=== PATIENT | female | born 1990 | race Caucasian/White ===

== ENCOUNTER 2020-01-25 01:24 | Emergency (ER) | payer BC ==
[~2020-01-25] VITALS: Ht 167.6 cm; Wt 52.2 kg
[2020-01-25 01:40] VITALS: BP 108/71
[2020-01-25] MEDS ORDERED: ASPIR 8181 MG ORAL (01:40)
[2020-01-25] MEDS ORDERED: PROZAC40 MG ORAL (01:40)
--- NOTE | 2020-01-25 01:57 | Emergency Room Report ---
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 COVID-19 risk:Contact w/high r: No COVID-19 risk:Travel to affect: No Has patient experienced lynch: Yes Coronavirus symptoms experienc: Fever (T>100.4F or >38C), Shortness of Breath, Flu-Like Symptoms Allergies: Coded Allergies: No Known Allergies (Unverified , 01/25/20) Patient History Past Medical History: see triage record Last Menstrual Period: 12/23 Now: No Reviewed Nursing Documentation: PMH: Agreed; PSxH: Agreed Nursing Documentation-PMH Past Medical History: No History, Except For Review of Systems All Other Systems: negative except mentioned in HPI Physical Exam Vital Signs Date Time Temp Pulse Resp B/P (MAP) Pulse Ox O2 Delivery O2 Flow Rate FiO2 01/25/20 01:30 100.9 112 20 108/71 (83) 94 Room Air Sp02 EP Interpretation: reviewed, normal General Appearance: well appearing, no apparent distress Head: normocephalic, atraumatic Eyes: bilateral eye PERRL, bilateral eye EOMI ENT: hearing grossly normal, TMs + canals normal, uvula midline, pharyngeal erythema Neck: full range of motion, supple, no meningismus, no bony tend Respiratory: lungs clear, normal breath sounds, no rhonchi, no respiratory distress, no retraction, no accessory muscle use Cardiovascular #1: normal peripheral pulses, regular rate, rhythm, no edema, no gallop, no JVD, no murmur Gastrointestinal: normal bowel sounds, non tender, soft, no mass, no organomegaly, non-distended, no guarding, no hernia, no pulsatile mass, no rebound Genitourinary: no CVA tenderness Musculoskeletal: normal inspection Neurologic: motor strength/tone normal, academic affairs vice president III-XII nml as tested, oriented x3 , sensory intact, responsive Psychiatric: mood/affect normal Skin: no rash Lymphatic: normal inspection, no adenopathy Medical Decision Making Diagnostic Impression: Primary Impression: Influenza-like symptoms ER Course Given the history and presentation multiple differentials and consideration including but not limited to flu,covid 19, pharyngitis, simple cold Patient also reports that she has a valve replacement Reports that she was diagnosed with the flu last month was put on Tamiflu Patient has some criteria meeting testing for covid 19 However with the lack of any cough or recent travel does not meet Department of Health criteria Unfortunately we also do not have any further testing kits at this time Patient does not appear ill requiring hospitalization therefore was instructed to rest at home self quarantine And isolation Patient was provided Tamiflu for possible influenza with high false-negative rate on testing Also placed on antibiotics given her valve replacement Fever has improved patient feels improved and is discharged for close outpatient follow-up Last Vital Signs Date Time Temp Pulse Resp B/P (MAP) Pulse Ox O2 Delivery O2 Flow Rate FiO2 01/25/20 01:30 100.9 112 20 108/71 (83) 94 Room Air Status: improved Disposition: HOME, SELF-CARE Condition: Improved Scripts Amoxicillin* (AMOXIL*) 500 Mg Capsule 500 MG ORAL THREE TIMES A DAY, #30 CAP Prov: Sammie Garcia DO 01/25/20 Ibuprofen* (MOTRIN*) 600 Mg Tablet 600 MG ORAL Q8H PRN for For Pain, #20 TAB 0 Refills Prov: Sammie Garcia DO 01/25/20 Oseltamivir Phosphate (Tamiflu) 75 Mg Capsule 75 MG ORAL TWICE A DAY for 5 Days, CAP Prov: Sammie Garcia DO 01/25/20 Referrals: NOT CHOSEN [facility]/MD,REFERRING (PCP) Additional Instructions: Patient is provided with the discharge instructions notified to follow up with primary doctor in the next 2-3 days otherwise return to the er with any worsening symptoms. Please note that this report is being documented using [employer] technology. This can lead to erroneous entry secondary to incorrect interpretation by the dictating instrument. Sammie Garcia DO Jan 25, 2020 01:57
[2020-01-25] MEDS ORDERED: IBUPROFEN600 MG ORAL (02:37)
[2020-01-25] MEDS ORDERED: TAMIFLU75 MG ORAL (02:37)
[2020-01-25] MEDS ORDERED: AMOXICILLIN500 MG ORAL (02:37)
[2020-01-25 02:40] VITALS: BP 108/71
== END 2020-01-25 02:40 | disposition home or self-care (01) ==
LOC: EMR 01:41
DX: J11.1 Influenza due to unidentified influenza virus with other respiratory manifestations (principal); Z95.2 Presence of prosthetic heart valve
CPT/HCPCS: 86710; 99282